=== PATIENT | female | born 1970 | race Caucasian/White ===

== ENCOUNTER 2020-09-30 08:18 | Outpatient (REF) | payer OTHER, SELFPAY ==
[2020-09-30 11:14] LABS: MANUAL DIFF FLAG NO
[2020-09-30 11:27] LABS: Basophils Absolute Auto 0.1 X10*3/uL (0.0-0.2); Basophils Percent Auto 0.8 % (0-2); Eosinophils Absolute Auto 0.2 X10*3/uL (0.0-0.4); Eosinophils Percent Auto 2.8 % (0-4); Hematocrit 47.3 % (37-47); Hemoglobin 15.1 g/dl (12.0-16.0); Imm Gran Abs Auto 0.02 X10*3/uL (0.00-0.03); Imm Gran Pct Auto 0.2 % (0.0-0.4); Lymphocytes Absolute Auto 1.9 X10*3/uL (1.2-4.9); Lymphocytes Percent Auto 22.5 % (20-40); Mean Corpuscular HGB Conc 31.9 g/dl (31.0-35.0); Mean Corpuscular Hemoglobin 29.3 pg (27.0-33.0); Mean Corpuscular Volume 91.8 fL (80-98); Mean Platelet Volume 10.1 fL (9.4-12.3); Monocytes Absolute Auto 0.4 X10*3/uL (0.1-1.2); Monocytes Percent Auto 5.1 % (2-11); Neutrophils Absolute Auto 5.9 X10*3/uL (2.0-8.3); Neutrophils Percent Auto 68.6 % (45-73); Platelet Count 836 X10*3/uL (160-400); Red Blood Count 5.15 X10*6/uL (4.20-5.50); Red Cell Distribution Width 12.9 % (11.0-16.0); White Blood Count 8.6 X10*3/uL (4.8-10.8)
[2020-09-30 11:47] LABS: Alanine Aminotransferase 28 U/L (0-31); Albumin Level 4.6 g/dL (3.5-5.0); Alkaline Phosphatase 100 U/L (39-117); Anion Gap 15 (12-20); Aspartate Amino Transferase 19 U/L (5-31); Bilirubin Total 0.5 mg/dL (0.0-1.0); Blood Urea Nitrogen 19 mg/dL (9-16); Calcium 9.8 mg/dL (8.4-10.2); Carbon Dioxide 25 mmol/L (22-29); Chloride 107 mmol/L (96-108); Cholesterol 228 mg/dL; Estimated Glomerular Filt Rate > 60; Glucose Fasting 93 mg/dL (60-99); HDL Cholesterol 52 mg/dL; LDL Cholesterol Calculated 157 mg/dl; Potassium 4.8 mmol/l (3.3-5.1); Sodium 142 mmol/L (135-145); Total Protein 7.1 g/dL (6.5-8.0); Triglycerides 97 mg/dL
[2020-09-30 12:10] LABS: Thyroid Stimulating Hormone 1.39 uIU/mL (0.32-4.0); Vitamin D 25-OH Total 55.2 ng/mL (>30)
== END 2020-09-30 08:19 | disposition home or self-care (01) ==
LOC: HO.HMGCLDS 08:18
PROVIDERS: PCP Internal Medicine; Visit Provider Internal Medicine
DX: Z00.00 Encounter for general adult medical examination without abnormal findings (principal); D47.3 Essential (hemorrhagic) thrombocythemia; E78.00 Pure hypercholesterolemia, unspecified; E55.9 Vitamin D deficiency, unspecified; N32.81 Overactive bladder; E66.09 Other obesity due to excess calories
CPT/HCPCS: 36415; 80053; 80061; 82306; 84443; 85025

== ENCOUNTER → 2020-10-28 15:13 | Outpatient (BNV) | payer OTHER, SELFPAY | PROVIDERS: PCP Internal Medicine; Visit Provider Internal Medicine Medical Oncology | DX: D47.3 Essential (hemorrhagic) thrombocythemia (principal) | CPT/HCPCS: 99213; 99214 ==

== ENCOUNTER 2021-01-21 06:23 | Day surgery (SDC) | payer OTHER, SELFPAY ==
[2021-01-14 10:43] VITALS: BMI 34.7
--- NOTE | 2021-01-16 13:35 | HO.ANESPROP2 ---
Documented by User: Lena Rivas 01/16/21 13:43 HPI - Anesthesia Eval Consult details Narrative: 50yo F for Colonoscopy PMFSH Active Problems Active Problems: All Active Problems (Updated 01/13/21 @ 16:19 by Leonie Flores) Essential thrombocytosis (Acute) Past Medical History Medical History Essential thrombocytosis Low vitamin D level Overactive bladder Surgical History Surgical History History of placement of ear tubes History of tonsillectomy and adenoidectomy Social History Social History Are you a primary post acute care nurse practitioner to a significant other at home: No Do you presently have visiting nurse or other home services: No Smoking Status: Former smoker Smoking Quit Date: > 10 yrs ago Use of substances other than those prescribed or required for medical reasons: No Have you been hit, kicked, punched, or otherwise hurt by someone within the past year? If so, by whom?: No Advance Directives: No Advance Directives Information Provided: No Advance Directives on File: No Recently lost weight without trying: No Meds Allergies Allergy/AdvReac Type Severity Reaction Status Date / Time No Known Allergies Allergy Unverified 01/13/21 16:17 Home Medications Medication Instructions Recorded Confirmed Last Taken Type aspirin [Aspir-81] 81 mg PO DAILY 01/13/21 01/13/21 Unknown History dycswtm-iqlznduycjtqy-vkllnzcq 1 tab PO Q4-6H PRN 01/13/21 01/13/21 Unknown History [Excedrin Extra Strength] cholecalciferol (vitamin D3) 2 cap PO DAILY 01/13/21 01/13/21 Unknown History rosuvastatin 1 tab PO BEDTIME 01/13/21 01/13/21 Unknown History solifenacin 1 tab PO DAILY 01/13/21 01/13/21 Unknown History Exam Exam Date and Time: January 16, 2021 1335 Height,Weight and Vital Signs: Height 5 ft 2 in Weight 86.183 kg Pertinent Lab Results Pertinent Lab Results: Laboratory Tests 10/28/20 10/28/20 15:40 15:40 WBC 8.9 Hgb 13.7 Hct 42.5 Plt Count 749 H Sodium 140 Potassium 4.7 Chloride 108 BUN 16 Creatinine 0.72 Assessment and Plan Assessment Anesthesia Assessment: Chart Reviewed Documented by User: Maryam Hopkins 01/21/21 07:26 [facility] Past Medical History Medical History Essential thrombocytosis Low vitamin D level Overactive bladder Surgical History Surgical History History of placement of ear tubes History of tonsillectomy and adenoidectomy Social History Social History Are you a primary post acute care nurse practitioner to a significant other at home: No Do you presently have visiting nurse or other home services: No Smoking Status: Former smoker Smoking Quit Date: > 10 yrs ago Use of substances other than those prescribed or required for medical reasons: No Have you been hit, kicked, punched, or otherwise hurt by someone within the past year? If so, by whom?: No Advance Directives: No Advance Directives Information Provided: No Advance Directives on File: No Recently lost weight without trying: No Meds Allergies Allergy/AdvReac Type Severity Reaction Status Date / Time No Known Allergies Allergy Unverified 01/13/21 16:17 Home Medications Medication Instructions Recorded Confirmed Last Taken Type aspirin [Aspir-81] 81 mg PO DAILY 01/13/21 01/13/21 Unknown History pgrvyqh-weghtsdtrhfyl-ziussrmc 1 tab PO Q4-6H PRN 01/13/21 01/13/21 Unknown History [Excedrin Extra Strength] cholecalciferol (vitamin D3) 2 cap PO DAILY 01/13/21 01/13/21 Unknown History rosuvastatin 1 tab PO BEDTIME 01/13/21 01/13/21 Unknown History solifenacin 1 tab PO DAILY 01/13/21 01/13/21 Unknown History Exam Airway Mallampati Class: II TM Dist: >3cm Neck ROM: Full Assessment and Plan Assessment Anesthesia Assessment: Anesthesia Plan Discussed and Chart Reviewed Final Anesthetic Review NPO: Yes ASA Class: II Final Preanesthetic Review: No Changes in Pt Med Stat, Meds/Allgs Chart Reviewed, Consent Obtained/Reviewed and Anes Risks/Benef Reviewed Patient Risk: Low Procedure Risk: Low Assessment/Block/Sedation in SS: Assess/Block/Sedation-SS Anesthetic Plan Anesthetic Plan: MAC: Disposition: Standard PACU
[2021-01-21 06:35] VITALS: BP 115/66; PULSE 85; RESP 18; TEMP 36.7; O2SAT 99
[2021-01-21] MEDS: Lactated Ringers 1,000 ML 100 ML IVCONT (06:55)
--- NOTE | 2021-01-21 07:28 | MHC.SHP ---
Pre-Procedural Eval Section B Chief Complaint: screening Details of Present Illness: screening Relevant Family History (Specify if Yes): No Relevant Social History: None Present Medications: see Short Stay Collaborative assessment Medical History: No relevant PMH History of Previous Operations: No relevant previous surgery Allergies: Allergies Allergy/AdvReac Type Severity Reaction Status Date / Time No Known Allergies Allergy Unverified 01/13/21 16:17 Review of Systems Sugical H&P ROS: Negative: Constitution, Cardiovascular, Respiratory, Neurological, Psychiatric, Hem-Onc, Allergic/Immunologic, Gastrointestinal, Genitourinary, Musculoskeletal, Integumentary, Endocrine and Eyes/Ears/Nose/Throat Exam Surgical H&P Exam: Normal: HEENT, Normal: Heart, Normal: Lungs, Normal: Extremities, Normal: Abdomen, Normal: Skin and Normal: Neurological Plan Diagnosis/Plan: Unchanged I have reviewed the history and physical and performed a pertinent physical examination on my patient. No changes have occurred unless specified.
--- NOTE | 2021-01-21 07:50 | PM.OP ---
Brief Operative Note Date of Service: 01/21/21 Pre-op diagnosis: screening Post-op diagnosis: same Procedure: colonoscopy Surgeon: Prakash Dunbar Anesthesia: MAC Estimated blood loss (mL): 0 Pathology: none sent Condition: stable Disposition: PACU
[2021-01-21 07:53] VITALS: BP 96/50; PULSE 78; RESP 16; TEMP 36.4; O2SAT 96
[2021-01-21 08:08] VITALS: BP 116/65; PULSE 72; RESP 17; TEMP 36.4; O2SAT 98
--- NOTE | 2021-01-21 09:22 | OP_ITS ---
SURGEON: Prakash Dunbar MD INDICATIONS: Colon cancer screening. PREOPERATIVE DIAGNOSIS: POSTOPERATIVE DIAGNOSIS: PROCEDURE PERFORMED: Colonoscopy to the terminal ileum. ESTIMATED BLOOD LOSS: COMPLICATIONS: ANESTHESIA: Medications, monitored anesthesia care. ASSISTANTS: SPECIMENS: DESCRIPTION OF PROCEDURE: History and physical performed. The risks and benefits of the procedure were explained to the patient. Informed consent was obtained. The patient was placed in the left lateral decubitus position. A digital rectal exam was performed and was found to be normal. The Olympus pediatric video colonoscope was introduced into the rectum and advanced to the cecum without difficulty. The cecum was identified by transillumination, palpation, and identification of ileocecal valve. Examination was performed, and the scope was removed. She tolerated the procedure well and was taken to recovery area in stable condition. FINDINGS: The terminal ileum was examined and appeared normal. The visualized colonic mucosa was normal. The quality of the prep was good. No polyps were identified. Retroflexed examination showed small internal hemorrhoids. IMPRESSION: Negative screening colonoscopy. RECOMMENDATIONS: 1. Follow up as needed. 2. Repeat colonoscopy is recommended in 10 years for average risk individuals. MD LAYTON Basurto/OMAR / [id number]
== END 2021-01-21 08:30 | disposition home or self-care (01) ==
PROVIDERS: PCP Internal Medicine; Visit Provider Internal Medicine Gastroenterology
PROC: 0DJD8ZZ Inspection of Lower Intestinal Tract, Via Natural or Artificial Opening Endoscopic (ICD-10-PCS; CPT 45378; principal; 2021-01-21 07:30)
DX: Z12.11 Encounter for screening for malignant neoplasm of colon (principal); K64.8 Other hemorrhoids; D47.3 Essential (hemorrhagic) thrombocythemia; E55.9 Vitamin D deficiency, unspecified; N32.81 Overactive bladder; Z79.82 Long term (current) use of aspirin; Z79.899 Other long term (current) drug therapy; Z87.891 Personal history of nicotine dependence
CPT/HCPCS: 45378

== ENCOUNTER 2022-01-29 07:57 | Outpatient (REF) | payer OTHER, SELFPAY ==
[2022-01-29 11:22] LABS: MANUAL DIFF FLAG NO
[2022-01-29 11:35] LABS: Basophils Absolute Auto 0.1 X10*3/uL (0.0-0.2); Basophils Percent Auto 0.8 % (0-2); Eosinophils Absolute Auto 0.3 X10*3/uL (0.0-0.4); Hematocrit 48.1 % (37.0-47.0); Hemoglobin 15.1 g/dl (12.0-16.0); Imm Gran Abs Auto 0.02 X10*3/uL (0.00-0.03); Imm Gran Pct Auto 0.3 % (0.0-0.4); Lymphocytes Absolute Auto 1.8 X10*3/uL (1.2-4.9); Mean Corpuscular HGB Conc 31.4 g/dl (31.0-35.0); Mean Corpuscular Hemoglobin 28.7 pg (27.0-33.0); Mean Corpuscular Volume 91.4 fL (80.0-98.0); Mean Platelet Volume 10.1 fL (9.4-12.3); Monocytes Absolute Auto 0.5 X10*3/uL (0.1-1.2); Monocytes Percent Auto 6.8 % (2-11); Neutrophils Absolute Auto 4.6 x10*3/uL (2.0-8.3); Neutrophils Percent Auto 63.1 % (45-73); Platelet Count 779 X10*3/uL (160-400); Red Blood Count 5.26 X10*6/uL (4.20-5.50); Red Cell Distribution Width 13.2 % (11.0-16.0); White Blood Count 7.3 X10*3/uL (4.8-10.8)
[2022-01-29 11:58] LABS: Alanine Aminotransferase 21 U/L (0-31); Albumin Level 4.4 g/dL (3.5-5.0); Alkaline Phosphatase 93 U/L (39-117); Anion Gap 16 (12-20); Aspartate Amino Transferase 16 U/L (5-31); Bilirubin Total 0.6 mg/dL (0.0-1.0); Blood Urea Nitrogen 18 mg/dL (9-16); Calcium 9.9 mg/dL (8.4-10.2); Carbon Dioxide 22 mmol/L (22-29); Chloride 108 mmol/L (96-108); Cholesterol 244 mg/dL; Estimated Glomerular Filt Rate > 60; Glucose Fasting 88 mg/dL (60-99); HDL Cholesterol 44 mg/dL; LDL Cholesterol Calculated 185 mg/dl; Potassium 4.7 mmol/L (3.3-5.1); Sodium 141 mmol/L (135-145); Total Protein 6.9 g/dL (6.5-8.0); Triglycerides 75 mg/dL
[2022-01-29 12:23] LABS: Thyroid Stimulating Hormone 1.32 uIU/mL (0.32-4.0); Vitamin D 25-OH Total 101.5 ng/mL (>30)
[2022-01-29 12:31] LABS: Microalbum/Creatinine Ratio Ur 24.5 ug/mg cr
== END 2022-01-29 07:58 | disposition home or self-care (01) ==
LOC: HO.HMGCLDS 07:57
PROVIDERS: PCP Internal Medicine; Visit Provider Internal Medicine
DX: R00.2 Palpitations (principal); E78.00 Pure hypercholesterolemia, unspecified; E55.9 Vitamin D deficiency, unspecified
CPT/HCPCS: 36415; 80053; 80061; 82043; 82306; 84443; 85025

== ENCOUNTER → 2022-02-16 13:15 | Outpatient (REF) | payer OTHER, SELFPAY ==
--- NOTE | 2022-02-16 13:20 | ECG_ITS ---
Hook-up date: 2022-02-16 12:30:00 Duration: 25:11:00 Test Indications: PALPITATIONS Medications: 333183 QRS complexes 5 Ventricular ectopics which represent <1 % of total QRS comp. 7 Supraventricular ectopics which represent <1 % of total QRS comp. * Paced QRS complexs which represent % of total QRS comp. VENTRICULAR ECTOPY 3 Isolated 0 Bigeminal Cycles 1 Couplets 0 Runs 0 Beats in Runs * Beats LONGEST at * BPM at :: -- * Beats FASTEST at * BPM at :: -- SUPRAVENTRICULAR ECTOPY 5 Isolated 1 Couplets 0 Runs 0 Beats in Runs * Beats LONGEST at * BPM at :: -- * Beats FASTEST at * BPM at :: -- HEART RATES 54 MIN at 01:05:07 2022-02-17 72 AVG 119 MAX at 12:31:19 2022-02-16 LONGEST RR 1.1920 secs at 02:38:45 2022-02-17 S-T LEVELS Channel 1 - 128 mm at 12:30:00 2022-02-16 - 128 mm at 12:30:00 2022-02-16 Channel 2 - 128 mm at 12:30:00 2022-02-16 - 128 mm at 12:30:00 2022-02-16 Channel 3 - 128 mm at 03:14:91 -- - 128 mm at 03:14:91 Basic rhythm Normal sinus rhythm No long pause or profound bradycardia Rare ectopics Patient reported symptoms of flutter correlated with NSR Referred By: Ruiz Holman Overread By: JASON BENTON MD
== END ==
LOC: HO.CARD 13:15
PROVIDERS: Visit Provider Internal Medicine
DX: R00.2 Palpitations (principal)
CPT/HCPCS: 93225; 93226

== ENCOUNTER 2022-05-01 06:03 | Outpatient (REF) | payer OTHER, SELFPAY ==
[2022-05-01 11:08] LABS: MANUAL DIFF FLAG NO
[2022-05-01 11:18] LABS: Basophils Absolute Auto 0.1 X10*3/uL (0.0-0.2); Basophils Percent Auto 0.9 % (0-2); Eosinophils Absolute Auto 0.3 X10*3/uL (0.0-0.4); Hemoglobin 14.3 g/dl (12.0-16.0); Imm Gran Abs Auto 0.02 X10*3/uL (0.00-0.03); Imm Gran Pct Auto 0.2 % (0.0-0.4); Lymphocytes Absolute Auto 1.8 X10*3/uL (1.2-4.9); Lymphocytes Percent Auto 20.7 % (20-40); Mean Corpuscular HGB Conc 32.5 g/dl (31.0-35.0); Mean Corpuscular Hemoglobin 29.7 pg (27.0-33.0); Mean Corpuscular Volume 91.3 fL (80.0-98.0); Mean Platelet Volume 10.5 fL (9.4-12.3); Monocytes Absolute Auto 0.6 X10*3/uL (0.1-1.2); Monocytes Percent Auto 6.5 % (2-11); Neutrophils Absolute Auto 5.9 x10*3/uL (2.0-8.3); Neutrophils Percent Auto 68.7 % (45-73); Platelet Count 825 X10*3/uL (160-400); Red Blood Count 4.82 X10*6/uL (4.20-5.50); Red Cell Distribution Width 13.1 % (11.0-16.0); White Blood Count 8.6 X10*3/uL (4.8-10.8)
[2022-05-01 12:06] LABS: Vitamin D 25-OH Total 59.4 ng/mL (>30)
[2022-05-01 12:07] LABS: Cholesterol 184 mg/dL; HDL Cholesterol 44 mg/dL; LDL Cholesterol Calculated 126 mg/dl; Triglycerides 74 mg/dL
== END 2022-05-01 06:04 | disposition home or self-care (01) ==
LOC: HO.HMGCLDS 06:03
PROVIDERS: Visit Provider Internal Medicine
DX: E55.9 Vitamin D deficiency, unspecified (principal); E78.00 Pure hypercholesterolemia, unspecified; D47.3 Essential (hemorrhagic) thrombocythemia
CPT/HCPCS: 36415; 80061; 82306; 85025

== ENCOUNTER 2023-06-08 06:07 | Outpatient (REF) | payer OTHER, SELFPAY ==
[2023-06-08 11:20] LABS: MANUAL DIFF FLAG NO
[2023-06-08 11:26] LABS: Basophils Absolute Auto 0.1 X10*3/uL (0.0-0.2); Basophils Percent Auto 1.1 % (0-2); Eosinophils Absolute Auto 0.3 X10*3/uL (0.0-0.4); Eosinophils Percent Auto 3.7 % (0-4); Hematocrit 44.9 % (37.0-47.0); Hemoglobin 14.4 g/dl (12.0-16.0); Imm Gran Abs Auto 0.02 X10*3/uL (0.00-0.03); Imm Gran Pct Auto 0.3 % (0.0-0.4); Lymphocytes Absolute Auto 2.2 X10*3/uL (1.2-4.9); Lymphocytes Percent Auto 27.8 % (20-40); Mean Corpuscular HGB Conc 32.1 g/dl (31.0-35.0); Mean Corpuscular Hemoglobin 29.6 pg (27.0-33.0); Mean Corpuscular Volume 92.2 fL (80.0-98.0); Mean Platelet Volume 10.6 fL (9.4-12.3); Monocytes Absolute Auto 0.5 X10*3/uL (0.1-1.2); Neutrophils Absolute Auto 4.8 x10*3/uL (2.0-8.3); Neutrophils Percent Auto 61.1 % (45-73); Platelet Count 789 X10*3/uL (160-400); Red Blood Count 4.87 X10*6/uL (4.20-5.50); Red Cell Distribution Width 13.1 % (11.0-16.0); White Blood Count 7.8 X10*3/uL (4.8-10.8)
[2023-06-08 14:53] LABS: Alanine Aminotransferase 25 U/L (0-31); Albumin Level 4.1 g/dL (3.5-5.0); Alkaline Phosphatase 82 U/L (39-117); Anion Gap 11 (12-20); Aspartate Amino Transferase 19 U/L (5-31); Bilirubin Total 0.4 mg/dL (0.0-1.0); Blood Urea Nitrogen 10 mg/dL (9-16); Calcium 9.8 mg/dL (8.4-10.2); Carbon Dioxide 28 mmol/L (22-29); Chloride 108 mmol/L (96-108); Cholesterol 211 mg/dL (<200); Estimated Glomerular Filt Rate > 60; Glucose Fasting 94 mg/dL (60-99); HDL Cholesterol 42 mg/dL (>40); LDL Cholesterol Calculated 143 mg/dL (<100); Potassium 4.1 mmol/L (3.3-5.1); Sodium 143 mmol/L (135-145); Total Protein 6.6 g/dL (6.5-8.0); Triglycerides 130 mg/dL (<150)
[2023-06-08 14:54] LABS: Thyroid Stimulating Hormone 4.83 uIU/mL (0.32-4.0); Vitamin D 25-OH Total 53.8 ng/mL (>30)
== END 2023-06-08 06:08 | disposition home or self-care (01) ==
LOC: HO.HMGCLDS 06:07
PROVIDERS: PCP Internal Medicine; Visit Provider Internal Medicine
DX: D47.3 Essential (hemorrhagic) thrombocythemia (principal); N32.81 Overactive bladder; E78.00 Pure hypercholesterolemia, unspecified; E55.9 Vitamin D deficiency, unspecified; E66.09 Other obesity due to excess calories
CPT/HCPCS: 36415; 80053; 80061; 82306; 84443; 85025

== ENCOUNTER 2024-09-04 11:59 | Outpatient (AMB) | payer OTHER, SELFPAY ==
--- NOTE | 2024-09-04 13:30 | MHC.OFFWIV ---
Intake Vital Signs 09/04/24 13:31 Height 5 ft 2 in Weight 196 lb BMI 35.8 BP 126/80 Blood Pressure Location Lt brachial Position Sitting Pulse 81 Pulse Source Pulse Oximeter Temp 98.1 F Temp Source Oral Pulse Oximetry (%) 97 Oxygen Delivery Method Room Air Intake Visit Reasons: EP stomach issues Intake Note: Patient here for diarrhea that has been present for about 3 weeks. she was put on cipro which helped a little and soon after finishing med it started up again. Patient Tobacco Use Status: Never used Tobacco Allergies No Known Allergies Allergy (Unverified 09/04/24 13:32) Do you need a note to return to daycare/school/sports/work: Yes HPI EP stomach issues HPI Details This note is constructed using voice recognition software. 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 The patient is a 54 year old female who presents to the clinic today with loose stools for the past 3 weeks. She reports that initially she started with watery diarrhea, she had contact as her PCP, who ordered her some Cipro and a bland diet, it got better, but the symptoms came back with soft stools, not watery. She denies fever, chills, nausea, vomiting she has not done a stool sample. Her episodes are 1-2 per day. She is worried about going to work as she has to go through 2 locked doors to get there she works for the [employer] [place]. [facility] Medical History Essential thrombocytosis Low vitamin D level Overactive bladder Surgical History History of placement of ear tubes History of tonsillectomy and adenoidectomy Family History Father H/O diabetes mellitus H/O: lung cancer Maternal Grandmother H/O diabetes mellitus Mother H/O brain tumor Social History Household Members: Spouse Housing: House Are you a primary foster care worker to a significant other at home: No Do you presently have visiting nurse or other home services: No Alcohol intake: current Alcohol intake frequency: holidays/special occasions only Alcohol type: wine Patient Tobacco Use Status: Never used Tobacco service: No Current occupational status: employed Review of Systems Const All systems reviewed & are unremarkable except as noted in HPI and below Physical Exam Vital Signs: Last Vital Signs Temp 98.1 F 09/04/24 13:31 Pulse 81 09/04/24 13:31 BP 126/80 09/04/24 13:31 Pulse Ox 97 09/04/24 13:31 Oxygen Delivery Method Room Air 09/04/24 13:31 BMI result Body Mass Index 35.8 Const General: cooperative, healthy appearing, comfortable, no acute distress and well developed Orientation/consciousness: patient oriented x3 Limitations: no limitations HEENT Head: Yes normal to inspection Ears: hearing grossly normal bilaterally General nose exam: Normal external nose present Face and sinus: Yes normal facial exam Eyes General: appearance normal, both eyes and all related structures Neck Neck: Yes normal visual inspection and Yes full ROM Resp Effort & Inspection: normal respiratory effort and able to speak in complete sentences Auscultation: clear to auscultation bilaterally Cardio Rate: regular rate Rhythm: regular rhythm Heart sounds: normal S1 and S2 GI Inspection: Yes normal to inspection Palpation (GI): Soft to palpation and nontender Skin General skin exam: no rashes or lesions noted Neuro General: patient oriented x3 Assessment & Plan Assessment & Plan (1) Loose stools: Code(s): R19.5 - Other fecal abnormalities Plan: Stools are reportedly more loose, however not diarrhea. Advised ongoing efforts towards rehydration. Advised follow up with PCP. Advised stool study should she have more than 7 episodes of watery diarrhea per day. Plan See above for full details and plan. Coding Level of Care Code New Pt Level 3 (58543) Diagnoses Loose stools R19.5
[2024-09-04 13:31] VITALS: BP 126/80; PULSE 81; TEMP 36.7; O2SAT 97; BMI 35.8
== END 2024-09-04 14:11 | disposition home or self-care (01) ==
PROVIDERS: PCP Internal Medicine; Visit Provider Registered Nurse
DX: R19.5 Other fecal abnormalities (principal)

== ENCOUNTER 2025-01-09 15:18 | Outpatient (AMB) | payer OTHER, SELFPAY ==
[2025-01-09 15:19] VITALS: BP 122/72; PULSE 80; RESP 14; TEMP 36.4; O2SAT 96; BMI 36.6
--- NOTE | 2025-01-09 15:19 | MHC.PC.OV ---
Vital Signs 01/09/25 15:19 Height 5 ft 2 in Weight 200 lb BMI 36.6 BP 122/72 Respiration 14 Pulse 80 Pulse Source Pulse Oximeter Temp 97.6 F Temp Source Temporal Artery Scan Pulse Oximetry (%) 96 Oxygen Delivery Method Room Air Intake Visit Reasons: 6 month follow up Licensed Vocational Nurse Required: No Accompanied by: Self / Same As Patient Allergies No Known Allergies Allergy (Verified 01/09/25 15:19) Tobacco use date assessed: 01/09/25 Dental Screening Dental Screen Date: 01/09/25 Did you have a dental visit in the last 12 months?: Yes Did you have a dental problem in the last 6 months where you did not have access to dental care?: No Was dental information given to patient?: Patient has dentist [facility] Medical History (Updated 01/09/25 @ 16:05 by Markel Horton MD) Low vitamin D level Overactive bladder Essential thrombocytosis Surgical History History of placement of ear tubes History of tonsillectomy and adenoidectomy Family History Father H/O diabetes mellitus H/O: lung cancer Maternal Grandmother H/O diabetes mellitus Mother H/O brain tumor Social History (Updated 01/09/25 @ 15:49 by ARTI Rivera) Household Members: Spouse Housing: House Are you a primary child care center assistant director to a significant other at home: No Do you presently have visiting nurse or other home services: No Alcohol intake: current Alcohol intake frequency: holidays/special occasions only Alcohol type: wine Patient Tobacco Use Status: Former Tobacco user Years Smoked: quit 15 years ago service: No Current occupational status: employed Cognitive needs: No Hearing needs: No Vision needs: Yes (rx contacts/ glasses) Questionnaire PHQ-9 Over the last 2 weeks, how often have you been bothered by any of the following problems? 1. Little interest or pleasure in doing things: not at all 2. Feeling down, depressed, or hopeless: not at all 3. Trouble falling or staying asleep, or sleeping too much: not at all 4. Feeling tired or having little energy: not at all 5. Poor appetite or overeating: not at all 6. Feeling bad about yourself - or that you are a failure or have let yourself or your family down: not at all 7. Trouble concentrating on things, such as reading the newspaper or watching television: not at all 8. Moving or speaking so slowly that other people could have noticed. Or the opposite - being so fidgety or restless that you have been moving around a lot more than usual: not at all 9. Thoughts that you would be better off or of hurting yourself in some way: not at all Total score: 0 Source: Developed by Drs. Ruiz Randolph, Jacki Preston, Dax Uriarte and colleagues, with an educational nilam from [employer]. Thrive Questionnaire Date Thrive assessed: 01/09/25 I am a: Patient What is your living situation today?: I have a steady place to live Within the past 12 months, did the food you bought not last and you didn't have the money to get more?: Never true Within the past 12 months, did you worry whether your food would run out before you got money to buy more?: Never true Do you have trouble paying for medicines?: No Do you have trouble getting transportation to medical appointments?: No Do you have trouble paying your heating and electricity bill?: No Do you have trouble taking care of your child, family member or friend?: No Do you have trouble with day-to-day activities such as bathing, preparing meals, shopping, managing finances, etc.?: No Are you currently unemployed and looking for a job?: No Are you interested in more education?: No Please select the resources that you would like help with: None THRIVE Score: 0 AUDIT C Alcohol Use Questionnaire (AUDIT-C) 1. How often do you have a drink containing alcohol?: Monthly or less 2. How many drinks containing alcohol do you have on a typical day when you are drinking?: 1 or 2 3. How often do you have six or more drinks on one occasion?: Never Total Score: 1 RANI-7 AMB Questionnaire RANI-7 Date RANI - 7 assessed: 01/09/25 Feeling nervous, anxious, or on edge: 0 = Not at all Not being able to stop or control worryin = Not at all Worrying too much about different things: 0 = Not at all Trouble relaxin = Not at all Being so restless that it is hard to sit still: 0 = Not at all Becoming easily annoyed or irritable: 0 = Not at all Feeling afraid as if something awful might happen: 0 = Not at all Total RANI-7 score (0-4 normal; 5-9 mild; 10-14 moderate; 15-21 severe): 0 Source: Developed by Drs. Ruiz Randolph, Jacki Preston, Dax Uriarte and colleagues, with an educational nilam from [employer]. Physical exam (Primary Care) Vital Signs: Last Vital Signs Temp 97.6 F 01/09/25 15:19 Pulse 80 01/09/25 15:19 Resp 14 01/09/25 15:19 BP 122/72 01/09/25 15:19 Pulse Ox 96 01/09/25 15:19 Oxygen Delivery Method Room Air 01/09/25 15:19 BMI result Body Mass Index 36.6 Tobacco/Smoking Status: Tobacco use Status Tobacco use date assessed 01/09/25 01/09/25 15:21 Patient Tobacco Use Status Former Tobacco user 01/09/25 15:50 PHQ-9: PHQ-9 Score PHQ-9: Total score 0 01/09/25 15:50 Thrive Assessment: Date of Thrive Assessment Date Thrive assessed 01/09/25 01/09/25 15:21 Coding Level of Care Code New Pt Level 4 (51764) Complex EM visit Add On G2211 Diagnoses Essential thrombocytosis D47.3 Overactive bladder N32.81 Low vitamin D level R79.89 Assessment & Plan Assessment & Plan (1) Essential thrombocytosis: Code(s): D47.3 - Essential (hemorrhagic) thrombocythemia Category: Medical Plan: Condition is stable. On no medications (2) Overactive bladder: Code(s): N32.81 - Overactive bladder Category: Medical Plan: Vesicare prescription refilled. (3) Low vitamin D level: Code(s): R79.89 - Other specified abnormal findings of blood chemistry Category: Medical Plan: Prescription refilled Plan History of Present Illness The patient is a 54-year-old female presenting for medication refill and follow-up for essential thrombocythemia and overactive bladder management. She has been diagnosed with essential thrombocythemia for ten years, managed conservatively due to low platelet counts. No medication is currently being administered for this condition, as histograms of platelet counts remain below the intervention threshold of one million. For overactive bladder, diagnosed many years ago, she uses Vesicare, a treatment that effectively manages her symptoms. The prescription regimen involves 10 mg taken orally once in the morning. Given its efficacy, the refill of this medication is currently required. 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 - Marital Status: with no children at home. Review of Systems - Genitourinary: Reports overactive bladder. Physical Exam General: Cooperative and healthy appearing Nutritional Appearance: Well nourished Orientation/consciousness: Patient oriented x3 Limitations: No limitations Head: Normal to inspection General: Appearance normal, both eyes and all related structures Neck: Normal visual inspection Chest: Normal palpation of entire chest wall Respiratory: Normal respiratory effort Neurology: Patient oriented x3 Results - Laboratory Results: Blood work conducted in October by Dr. Garcias. Plan The patient is to continue monitoring essential thrombocythemia with current conservative management until further indication for medication arises. Overactive bladder management will be sustained with 10 mg Solifenacin daily, and medication refills have been processed. Follow-up is to occur in six months to evaluate the management plan and drug efficacy. Patient was informed and verbally consented to the use of an ambient scribe for clinic note documentation during this visit. Discussion Notes I reviewed the management of essential thrombocythemia with the patient, including the rationale for non-pharmacological management based on current platelet levels. Furthermore, we discussed the effectiveness of Vesicare for overactive bladder symptoms, confirming the patient's satisfaction with the treatment. The patient was advised on the importance of future follow-up to monitor her conditions and maintain an effective treatment regimen. Medication refills for Vesicare and vitamin D were confirmed, and plans were made to reassess in six months. Patient Instructions - Continue taking 10 mg Vesicare once daily every morning. - Monitor any symptoms related to essential thrombocythemia and overactive bladder. - Attend the scheduled follow-up in six months. - Refill prescription for Vesicare as needed. - Seek medical attention if there are any changes in symptoms or concerns with medication.
--- OUTSIDE RECORDS SUMMARY | 2025-01-09 18:15 | XMS_ITS | Patient Health Record ---
Author Organization [facility] Address [address] [place] [address] Care Team Providers Care Information And Referral Director Name Role Phone River (RETIRED) Ruiz WATSON Primary Care Provid er Unavailable Prakash Dunbar Jr Unavailable Reason For Referral No Information Medications Medication SIG (Take, Route, Frequency, Duration) Notes Start Date End Date Status [facility] D3 Active MiraLax (colon prep) 8.3 ounce ((238) grams mixed with Gatorade or Crystal Light orally begin at 5:00 p.m. the day before the procedure for 1 day 10/02/2020 Active Tylenol PRN Active Excedrin Extra Strength PRN Active Aspir-81 Active Solifenacin Succinate Active Immunizations Vaccine Route Administration Date Status Comme nts Influenza Unknown 10/02/2020 Refused Social History Tobacco Use: Social History Observation Description Date Details (start date - stop date) Former Smoker NA - NA Tobacco Use/Smoking Question Answer Notes Patient is a former smoker When did you stop smoking? 10 year ago How long has it been since you last smoked? > 10 years Alcohol Screen Question Answer Notes Did you have a drink contain ing alcohol in the past year? Yes How often did you have a dri nk containing alcohol in the past year? Monthly or less (1 point) Points 1 Interpretation Negative Problems Problem Type SNOMED Code ICD Code Onset Dates Problem Status W/U Status Risk Notes Problem 628280580 Colon cancer screening (Z12.11) Active confirmed Problem 564495410 Encounter for other preprocedural examination (Z01.818) Active confirmed Problem 254560214884387 snf (current) use of aspirin (Z79.82) Active confirmed Plan Of Treatment Future Test Test Name Order Date COLONOSCOPY 10/02/2020 Insurance Providers Payer Name Payer Address Payer Phone Subscriber Number Group Number Insured Name Patient Relationship to Insured Coverage Start Date Coverage End Date [facility] [employer] [address] [place] [address] [id number] SOCORRO MYERS Self - patient is the insured Medical (General) History Medical History History ICD Code essential thrombocytosis overactive bladder Low Vitamin D3 level Surgical History Surgery Date(Month/Year) tonsillectomy and adenoidectomy Tubes in Ears
== END 2025-01-09 16:04 | disposition home or self-care (01) ==
LOC: HO.HMCSH 15:18
PROVIDERS: PCP Internal Medicine; Visit Provider Internal Medicine
DX: D47.3 Essential (hemorrhagic) thrombocythemia (principal); N32.81 Overactive bladder; R79.89 Other specified abnormal findings of blood chemistry

== ENCOUNTER → 2025-01-09 15:18 | Outpatient (BNVA) | payer OTHER, SELFPAY | PROVIDERS: PCP Internal Medicine; Visit Provider Internal Medicine ==

== ENCOUNTER 2025-07-03 15:09 | Outpatient (AMB) | payer OTHER, SELFPAY ==
[2025-07-03 15:08] VITALS: BP 122/59; PULSE 84; RESP 14; TEMP 36.3; O2SAT 97; BMI 37.1
--- NOTE | 2025-07-03 15:08 | MHC.PC.OV ---
Vital Signs 07/03/25 15:08 Height 5 ft 2 in Weight 203 lb BMI 37.1 BP 122/59 L Respiration 14 Pulse 84 Pulse Source Pulse Oximeter Temp 97.4 F Temp Source Temporal Artery Scan Pulse Oximetry (%) 97 Oxygen Delivery Method Room Air Intake Visit Reasons: 6 month f/u - see comments [employer] Machine Operator Required: No Accompanied by: Self / Same As Patient Allergies No Known Allergies Allergy (Verified 07/03/25 15:08) Tobacco use date assessed: 01/09/25 Dental Screening Dental Screen Date: 01/09/25 [facility] Medical History Low vitamin D level Overactive bladder Essential thrombocytosis Surgical History History of colonoscopy (~01/21/21) History of placement of ear tubes History of tonsillectomy and adenoidectomy Family History Father H/O diabetes mellitus H/O: lung cancer Maternal Grandmother H/O diabetes mellitus Mother H/O brain tumor Social History Household Members: Spouse Housing: House Are you a primary congregational care pastor to a significant other at home: No Do you presently have visiting nurse or other home services: No Alcohol intake: current Alcohol intake frequency: holidays/special occasions only Alcohol type: wine Patient Tobacco Use Status: Former Tobacco user Years Smoked: quit 15 years ago service: No Current occupational status: employed Cognitive needs: No Hearing needs: No Vision needs: Yes (rx contacts/ glasses) Questionnaire PHQ-9 Over the last 2 weeks, how often have you been bothered by any of the following problems? 1. Little interest or pleasure in doing things: not at all 2. Feeling down, depressed, or hopeless: not at all 3. Trouble falling or staying asleep, or sleeping too much: not at all 4. Feeling tired or having little energy: not at all 5. Poor appetite or overeating: not at all 6. Feeling bad about yourself - or that you are a failure or have let yourself or your family down: not at all 7. Trouble concentrating on things, such as reading the newspaper or watching television: not at all 8. Moving or speaking so slowly that other people could have noticed. Or the opposite - being so fidgety or restless that you have been moving around a lot more than usual: not at all 9. Thoughts that you would be better off or of hurting yourself in some way: not at all Total score: 0 Source: Developed by Drs. Ruiz Randolph, Jacki Preston, Dax Uriarte and colleagues, with an educational nilam from [employer]. Thrive Questionnaire Date Thrive assessed: 01/09/25 I am a: Patient What is your living situation today?: I have a steady place to live Within the past 12 months, did the food you bought not last and you didn't have the money to get more?: Never true Within the past 12 months, did you worry whether your food would run out before you got money to buy more?: Never true Do you have trouble paying for medicines?: No Do you have trouble getting transportation to medical appointments?: No Do you have trouble paying your heating and electricity bill?: No Do you have trouble taking care of your child, family member or friend?: No Do you have trouble with day-to-day activities such as bathing, preparing meals, shopping, managing finances, etc.?: No Are you currently unemployed and looking for a job?: No Are you interested in more education?: No Please select the resources that you would like help with: None THRIVE Score: 0 AUDIT C Alcohol Use Questionnaire (AUDIT-C) 1. How often do you have a drink containing alcohol?: Monthly or less 2. How many drinks containing alcohol do you have on a typical day when you are drinking?: 1 or 2 3. How often do you have six or more drinks on one occasion?: Never Total Score: 1 RANI-7 AMB Questionnaire RANI-7 Date RANI - 7 assessed: 01/09/25 Feeling nervous, anxious, or on edge: 0 = Not at all Not being able to stop or control worryin = Not at all Worrying too much about different things: 0 = Not at all Trouble relaxin = Not at all Being so restless that it is hard to sit still: 0 = Not at all Becoming easily annoyed or irritable: 0 = Not at all Feeling afraid as if something awful might happen: 0 = Not at all Total RANI-7 score (0-4 normal; 5-9 mild; 10-14 moderate; 15-21 severe): 0 Source: Developed by Drs. Ruiz Randolph, Jacki Preston, Dax Uriarte and colleagues, with an educational nilam from [employer]. Physical exam (Primary Care) Vital Signs: Last Vital Signs Temp 97.4 F 07/03/25 15:08 Pulse 84 07/03/25 15:08 Resp 14 07/03/25 15:08 BP 122/59 L 07/03/25 15:08 Pulse Ox 97 07/03/25 15:08 Oxygen Delivery Method Room Air 07/03/25 15:08 BMI result Body Mass Index 37.1 Tobacco/Smoking Status: Tobacco use Status Tobacco use date assessed 01/09/25 07/03/25 15:09 Patient Tobacco Use Status Former Tobacco user 07/03/25 15:09 PHQ-9: PHQ-9 Score PHQ-9: Total score 0 07/03/25 15:11 Thrive Assessment: Date of Thrive Assessment Date Thrive assessed 01/09/25 07/03/25 15:09 Coding Level of Care Code Est Pt Level 4 (29039) Complex EM visit Add On G2211 Diagnoses Essential thrombocytosis D47.3 Assessment & Plan Assessment & Plan (1) Essential thrombocytosis: Code(s): D47.3 - Essential (hemorrhagic) thrombocythemia Category: Medical Plan: History of Present Illness - The patient is a 54-year-old female presenting with essential thrombocytosis and for routine preventative care. - Essential thrombocytosis is monitored biannually with blood tests to track platelet levels, managed by Dr. Garcias. - Preventative care includes Pap smears, mammograms, and a colonoscopy conducted two to three years ago. 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 Review of Systems - Hematologic: Reports high blood platelet count. - Endocrine: Denies recent thyroid function testing. - Ophthalmologic: Vision is good with contact lenses; occasionally drives at night. Physical Exam General: Cooperative and healthy appearing Nutritional Appearance: Well nourished Orientation/consciousness: Patient oriented x3 Limitations: No limitations Head: Normal to inspection General: Appearance normal, both eyes and all related structures Neck: Normal visual inspection Chest: Normal palpation of entire chest wall Respiratory: N ormal respiratory effort Neurology: Patient oriented x3, Vision is good with contacts in Results - Labs: Blood work from June 11 showed no anemia, normal kidney and liver function, and electrolytes. Plan - Monitor platelet levels biannually for essential thrombocytosis management. - Conduct thyroid function test with fasting. - Refill Vesicare and vitamin D prescriptions; take Vesicare 10 mg and vitamin D daily. - Maintain routine preventative care including Pap smears, mammograms, and colonoscopy. Discussion Notes During the visit, we discussed the importance of monitoring platelet levels to manage essential thrombocytosis and the need for a thyroid function test with fasting. I advised the patient to continue with her routine preventative care, including Pap smears, mammograms, and colonoscopy. We also reviewed her current medications and arranged for refills as needed. Patient Instructions - Get blood work done for thyroid function with fasting after midnight. - Continue taking Vesicare 10 mg and vitamin D daily. - Schedule and attend routine preventative care appointments, including Pap smears, mammograms, and colonoscopy. Orders: Orders Thyroid Stimulating Hormone Today D47.3 - Essential (hemorrhagic) thrombocythemia Lipid Panel Today D47.3 - Essential (hemorrhagic) thrombocythemia Medications: Refilled solifenacin (Vesicare) 10 mg PO DAILY 90 tabs 1RF cholecalciferol (vitamin D3) 50 mcg (2 x 25 mcg (1,000 unit)) PO DAILY 60 caps 0RF
== END 2025-07-03 15:31 | disposition home or self-care (01) ==
LOC: HO.HMCSH 15:09
PROVIDERS: PCP Internal Medicine; Visit Provider Internal Medicine
DX: D47.3 Essential (hemorrhagic) thrombocythemia (principal)